=== PATIENT | female | born 1995 | race Asian ===

== ENCOUNTER 2016-09-22 18:04 | Emergency (ER) | payer OTHER ==
[2016-09-22] MEDS ORDERED: NS 0.9% 1000 ML* 1,000 ML BOLUS ONE (21:00)
[2016-09-22] MEDS ORDERED: Ondansetron INJ* 2 MG/ML VIAL IV ONE (21:01)
--- NOTE | 2016-09-22 21:05 | UC ---
Abdominal Pain Female HPI - HPI Summary HPI Summary: 21 yo female has been unable to tolerate anything PO since last PM nausea vomiting no abd pain no diarrhea no uti symptoms VILLALOBOS f/c myalgias no cough no URI symptoms - History of Current Complaint Chief Complaint: UCGI Stated Complaint: VOMITING Time Seen by Provider: 09/22/16 21:00 Hx Obtained From: Patient Hx Last Menstrual Period: one week ago Onset/Duration: Gradual Onset, Lasting Hours Timing: Constant Severity Initially: Moderate Severity Currently: Moderate Pain Intensity: 6 Pain Scale Used: 0-10 Numeric Location: Other - myalgias Aggravating Factor(s): Nothing Alleviating Factor(s): Nothing Associated Signs and Symptoms: Positive: Negative, Fever, Nausea, Vomiting Allergies/Adverse Reactions: Allergies Allergy/AdvReac Type Severity Reaction Status Date / Time No Known Allergies Allergy Verified 09/22/16 19:11 PMH/Surg Hx/FS Hx/Imm Hx Previously Healthy: Yes - Surgical History Surgical History: None - Family History Known Family History: Positive: None - Social History Alcohol Use: Occasionally Substance Use Type: None Smoking Status (MU): Never Smoked Tobacco Review of Systems Constitutional: Fever, Chills Skin: Negative Eyes: Negative ENT: Negative Respiratory: Negative Cardiovascular: Negative Gastrointestinal: Abdominal Pain, Vomiting Genitourinary: Negative Motor: Negative Neurovascular: Negative Musculoskeletal: Myalgia Neurological: Headache Psychological: Negative All Other Systems Reviewed And Are Negative: Yes Physical Exam Triage Information Reviewed: Yes Appearance: No Pain Distress, Well-Nourished, Ill-Appearing Vital Signs: Initial Vital Signs Temp 100.6 F 09/22/16 19:07 Pulse 105 09/22/16 19:07 Resp 18 09/22/16 19:07 BP 123/59 09/22/16 19:07 Pulse Ox 100 09/22/16 19:07 Eyes: Positive: Conjunctiva Clear ENT: Positive: Hearing grossly normal, Pharynx normal, TMs normal. Negative: Nasal congestion, Nasal drainage, Tonsillar exudate, Trismus, Muffled/hoarse voice Dental: Negative: Gross Decay/Caries @, Dental Fracture @, Abscess @ Neck: Positive: Supple, Nontender, No Lymphadenopathy Respiratory: Positive: Lungs clear, Normal breath sounds, No respiratory distress, No accessory muscle use Cardiovascular: Positive: RRR, No Murmur, Pulses Normal Abdomen Description: Negative: Nontender - mild left sided abd pain (LLQ), CVA Tenderness (R), CVA Tenderness (L), Hepatomegaly, Pulsatile Mass, Splenomegaly Musculoskeletal: Positive: Strength Intact, ROM Intact, No Edema Neurological: Positive: Alert Psychological Exam: Normal Skin Exam: Normal Re-Evaluation - Re-Evaluation First Eval Re-Evaluation Time: 22:32 Change: Improved - feels much better Abd Pain Female Course/Dx - Differential Dx/Diagnosis Provider Diagnoses: acute viral gastritis Discharge - Discharge Plan Condition: Stable Disposition: HOME Prescriptions: Ondansetron TAB* [Zofran Tab*] 4 mg PO Q6H PRN #10 tab PRN Reason: Nausea Patient Education Materials: Acute Nausea and Vomiting (ED) Referrals: [facility] NOY Schreiber [Primary Care Provider] - If Needed Additional Instructions: rest fluids tylenol recheck tomorrow if not better
[2016-09-22] MEDS ORDERED: Ketorolac INJ* 30 MG/ML 1 ML VIAL IV ONE (21:55)
[2016-09-22] MEDS ORDERED: Ondansetron ODT TAB* 4 MG PO ONE (22:30)
[2016-09-22 22:31] VITALS: BP 125/67
== END 2016-09-22 21:45 | disposition home or self-care (01) ==
LOC: UCEAST 18:04
DX: A08.4 Viral intestinal infection, unspecified (principal)
CPT/HCPCS: 81002; 96360; 96361; 96374; 96375; 99202; A9270-GY; G0463; J1885; J2405